=== PATIENT | male | born 1980 | race Caucasian/White ===

== ENCOUNTER 2021-07-30 18:26 | Emergency (ER) | payer BC ==
[2021-07-30] MEDS ORDERED: SODIUM CHLORIDE 0.9% 500 ML 500 ML IV STA (18:44)
[2021-07-30] MEDS ORDERED: SODIUM CHLORIDE 0.9% 1,000 ML IV STA (18:44)
[2021-07-30] MEDS ORDERED: LORazepam 2 MG/ML INJ IV STA (18:58)
[2021-07-30 19:03] LABS: Glucose,Whole Blood 156 mg/dL (75-99)
[2021-07-30] MEDS ORDERED: ALTEPLASE 50 MG in EMPTY BAG 1 BAG IV PRN ×2 (19:27→19:28)
[2021-07-30] MEDS ORDERED: ALTEPLASE 50 MG in EMPTY BAG 1 BAG IV STA (19:27)
[2021-07-30] MEDS ORDERED: ALTEPLASE 50 MG VIAL IV STA (19:27)
--- NOTE | 2021-07-30 19:46 | CT ---
EXAMINATION TYPE: CT chest angio for PE DATE OF EXAM: 07/30/2021 COMPARISON: None HISTORY: unresponsive CT DLP: 731.7 mGycm Automated exposure control for dose reduction was used. CONTRAST: Performed with IV Contrast, patient injected with 100 mL of Isovue 370. Images obtained from the thoracic inlet to the diaphragm with IV contrast. There are Three-D postproc essed images. There is airspace consolidation and atelectasis in the posterior lung lyon. There is some right mid dle lobe patchy pulmonary airspace edema. Heart is enlarged. There is contrast in the superior vena c kelsi and the posterior right atrium and also pooling in the inferior vena cava. There is small amount of contrast seen in the left ventricle. There is insufficient contrast in the pulmonary arteries for diagnosis of pulmonary embolism. No pneumothorax. Bony thorax is intact. There is posterior fusion valenzuela rgery in the upper thoracic spine. There is metal artifact. No mediastinal adenopathy. No thoracic ao rtic aneurysm. IMPRESSION: Exam is nondiagnostic for evaluation for pulmonary embolism. There is pooling of the contrast in the dependent venous structures consistent with very low cardiac output. There is contrast reflux into th e inferior vena cava and hepatic veins. Pulmonary patchy airspace and interstitial edema and patchy atelectasis as above. No pneumothorax.
--- NOTE | 2021-07-30 19:56 | CT ---
EXAMINATION TYPE: CT brain wo con DATE OF EXAM: 07/30/2021 COMPARISON: None HISTORY: unresponsive CT DLP: 1277.4 mGycm Automated exposure control for dose reduction was used. Ventricles have fairly normal size. There is no mass effect or midline shift. There is no sign of int racranial hemorrhage. There is soft tissue air noted around the anterior face and muscles of the mast ication on the right side. There is endotracheal tube. Calvarium is intact. Skull base is intact. Radha la turcica is normal. IMPRESSION: No acute intracranial abnormality. Soft tissue air probably in venous structures of the face that cou ld relate to resuscitation.
[2021-07-30] MEDS ORDERED: SODIUM CHLORIDE 0.9% 50 ML MINI-BAG IV ONE (20:27)
--- NOTE | 2021-07-30 20:29 | ED ---
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 Patient has had 2 rounds of chemo and in the near future is post have a third round. Family also states he has some sort of cardiac ablation but they are not sure for what. Patient was at his parents place where he has been staying lately and had an unresponsive episode which appear to be a seizure to the parents patient came back around and was alert and recognizes everyone EMS got there he had another 10 second episode of what look like a seizure to them he however had no post ictal period. Just prior to arrival patient had another seizure that lasted about a minute a half I saw him cc he rolled into the room by the time I got into the room the seizure had stopped and he was having significant agonal breathing. Patient's pulses were very faint at this time. We started assisting the patient by bagging him. I intubated the patient and patient also lost pulses were started CPR and followed ACLS protocol. Please see nursing notes for a sinus protocol. - Related Data Allergies Allergy/AdvReac Type Severity Reaction Status Date / Time No Known Allergies Allergy Verified 07/30/21 18:58 Review of Systems ROS Statement: Those systems with pertinent positive or pertinent negative responses have been documented in the HPI. ROS Other: All systems not noted in ROS Statement are negative. Past Medical History Smoking Status: Unknown if ever smoked Past Alcohol Use History: Unable to Obtain Past Drug Use History: Unable to Obtain General Exam - General Exam Comments Initial Comments: GENERAL: Patient is well-developed and well-nourished. Patient was having agonal respirations EYES: The sclera were anicteric and conjunctiva were pink and moist. Extraocular m ovements were intact and pupils were equal round and reactive to light. Eyelids were unremarkable. PULMONARY: Patient was having agonal respirations. CARDIOVASCULAR: Patient had faint femoral pulses initially ABDOMEN: Patient no gross abnormalities of the abdomen SKIN: Skin is clear with no lesions or rashes and otherwise unremarkable. NEUROLOGIC: Patient is unresponsive MUSCULOSKELETAL: Patient had no gross abnormalities of his extremities LYMPHATICS: No significant lymphadenopathy is noted PSYCHIATRIC: Unable to assess Procedures - Intubation Sedative: Etomidate Paralytic: Succinylcholine Laryngoscope: Vizcarra ET Tube Size: 8 ET Tube Uncuffed: No Tube Secured Location: teeth Tube Placement Confirmation: visualized tube passing through cords, equal breath sounds bilaterally, no breath sounds over epigastrium, confirmation by capnometry Patient Tolerated Procedure: well Intubation Complications: none Medical Decision Making - Medical Decision Making First EKG shows sinus bradycardia at 47 bpm CA interval is 149-24 QT interval 34 QTC was 348. Patient had significant ST segment elevation in 3 and aVF as well as precordial leads V1 through V3. A repeat EKG was done and showed sinus tachycardia 124 bpm CA interval is 139 QRS is 92 QT interval is 256 QTC was 3:30 [address] has significant ST segment elevation inferiorly and V1 through the V3. A third EKG was done and showed sinus rhythm first-degree block at 67 bpm CA interval is 270 QRS is 149 QT interval 393 QTC was 49. Patient again had ST segment ideation inferiorly as well as V1 through 4. I sent all these EKGs to Dr. Fernandez he understood that we were according the patient multiple times. I spoke with Dr. Fernandez approximately 40 minutes after I spoke to him initially and let him know that I was still coding the patient and he did not see an indication at that time to come in and do a cardiac catheterization since the patient was so unstable. CT of the head was done no obvious acute abnormality was seen. CT of the chest was done difficult to exclude any PE because the patient was not perfusing in the contrast did not make it into the arteries. Patient lost pulses many times for approximate estimate would be tendon see the code sheet for exact details. Patient was given approximately 15 epis was put on Levophed and had a couple bicarbonate and 1 atropine given after about an hour and 25 minutes of coding the patient the patient was pronounced at 7:45 PM I spoke with the patient's family or times during the code and inform them of the passing of their son. - Lab Data Lab Results 07/30/21 Range/Units 18:42 POC Glucose (mg/dL) 156 H (75-99) mg/dL POC Glu Grazing Aide ID Maikol Lopez Critical Care Time Critical Care Time: Yes Total Critical Care Time: 75 Disposition Clinical Impression: Cardiopulmonary arrest Disposition: Referrals: None,Stated [Primary Care Provider] - 1-2 days Time of Disposition: 20:30 Preliminary Cause of : Cardiopulmonary arrest
[2021-07-30] MEDS ORDERED: SUCCINYLCHOLINE CHLORIDE VIAL 200 MG/10 ML VIAL IV STA (21:30)
[2021-07-30] MEDS ORDERED: ETOMIDATE 2 MG/ML 10 ML VIAL IVP STA (21:31)
[2021-07-30 21:34] VITALS: BP 0/0; PULSE 0; RESP 0
== END 2021-07-30 22:00 | disposition expired ==
LOC: EC 18:26
DX: I46.9 Cardiac arrest, cause unspecified (principal)
CPT/HCPCS: 36415; 94002; 93005; 70450; 71275; 99291; 96374; 96361; 96376; J0171; J0330; Q9967